=== PATIENT | female | born 1985 | race Caucasian/White ===

== ENCOUNTER 2022-02-08 13:33 | Emergency (ER) | payer BC ==
[~2022-02-08] VITALS: Ht 167.6 cm; Wt 121.6 kg
[2022-02-08 13:43] VITALS: BP_SYST 142
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
--- NOTE | 2022-02-08 18:00 | NUR ---
Dr Vaughan evaluating patient in the triage room
--- NOTE | 2022-02-08 18:10 | NUR ---
Patient to ER bed H1 to gown for evaluation. Side rails up.
[2022-02-08] MEDS ORDERED: LIDOCAINE 1% 10 MG/ML, 20 ML MDV INJ ONE (18:15)
--- NOTE | 2022-02-08 19:12 | NUR ---
Report given to ALICIA Vázquez
[2022-02-08] MEDS ORDERED: IBUP-1969 PO (19:37)
[2022-02-08] MEDS ORDERED: TRAM50TA PO (19:37)
--- NOTE | 2022-02-08 19:50 | NUR ---
dPatient given written and verbal discharge instructions and verbalizes understanding. ER MD discussed with patient the results and treatment provided. Patient in stable condition. ID arm band removed. Rx of ibuprofen, tramadol given. Patient educated on pain management and to follow up with PMD. Pain Scale 0/10. Opportunity for questions provided and answered. Medication side effect fact sheet provided.
[2022-02-08 20:25] VITALS: BP_SYST 142
== END 2022-02-08 19:50 | disposition home or self-care (01) ==
LOC: SED 13:33
DX: S61.422A Laceration with foreign body of left hand, initial encounter (principal); Z79.899 Other long term (current) drug therapy; V49.40XA Driver injured in collision with unspecified motor vehicles in traffic accident, initial encounter; Y93.89 Activity, other specified; Y92.89 Other specified places as the place of occurrence of the external cause; Y99.8 Other external cause status
CPT/HCPCS: 99284; 73130; 12001; J2001

== ENCOUNTER 2022-02-15 08:10 | Emergency (ER) | payer BC ==
[~2022-02-15] VITALS: Ht 167.6 cm; Wt 121.6 kg
[~2022-02-15 08:10] MED LIST: IBUP-1969 PO; TRAM50TA PO
[2022-02-15 08:15] VITALS: BP_SYST 145
[2022-02-15] MEDS ORDERED: BACITRACIN 1 GM OINT TP ONE (09:00)
[2022-02-15] MEDS ORDERED: CLIN-142 PO (11:32)
[2022-02-15] MEDS ORDERED: IBUP-1969 PO (11:32)
[2022-02-15 12:00] VITALS: BP_SYST 145
== END 2022-02-15 12:00 | disposition home or self-care (01) ==
LOC: SED 08:10
DX: S60.212A Contusion of left wrist, initial encounter (principal); Z48.00 Encounter for change or removal of nonsurgical wound dressing; Z79.899 Other long term (current) drug therapy; V89.2XXA Person injured in unspecified motor-vehicle accident, traffic, initial encounter; Y93.89 Activity, other specified; Y92.89 Other specified places as the place of occurrence of the external cause; Y99.8 Other external cause status
CPT/HCPCS: 87070-TC; 99284

== ENCOUNTER 2023-12-25 11:36 | Day surgery (SDC) | payer BC ==
[~2023-12-25] VITALS: Ht 167.6 cm; Wt 129.3 kg
[~2023-12-25 11:36] MED LIST changes: +CLIN-142 PO
[2023-12-25 12:18] LABS: HCG,QUAL RESULT NEGATIVE (NEGATIVE)
[2023-12-25] MEDS ORDERED: HYDROmorphone 1 MG/ML INJ. CARTRIDGE IVP PRN (13:45)
[2023-12-25] MEDS ORDERED: MEPERIDINE HCL/PF 25 MG/ML DISP.SYRIN IVP PRN (13:45)
[2023-12-25] MEDS ORDERED: METOCLOPRAMIDE HCL 10 MG/2 ML VIAL IVP PRN (13:45)
[2023-12-25] MEDS ORDERED: OXYMETAZOLINE HCL 0.05% NASAL SPRAY NS ONE (14:06)
[2023-12-25 14:20] VITALS: O2SAT 97
[2023-12-25] MEDS ORDERED: LR 1,000 ML IV SCH (15:00)
[2023-12-25] MEDS: HYDROmorphone 1 MG/ML INJ. CARTRIDGE IVP PRN (15:05)
[2023-12-25] MEDS ORDERED: HYDROmorphone 1 MG/ML INJ. CARTRIDGE ONE (15:16)
[2023-12-25 18:16] VITALS: BP_SYST 116; PULSE 67; RESP 16
== END 2023-12-25 15:58 | disposition home or self-care (01) ==
LOC: SDS 11:36 → SMU 11:38 → SDS 15:58
PROVIDERS: ATTEND Otolaryngology
DX: H69.92 Unspecified Eustachian tube disorder, left ear (principal); H68.102 Unspecified obstruction of Eustachian tube, left ear; H90.3 Sensorineural hearing loss, bilateral; E66.3 Overweight; G43.909 Migraine, unspecified, not intractable, without status migrainosus; M19.90 Unspecified osteoarthritis, unspecified site; Z68.42 Body mass index [BMI] 45.0-49.9, adult; Z91.038 Other insect allergy status; J34.2 Deviated nasal septum; Z79.899 Other long term (current) drug therapy; Z80.3 Family history of malignant neoplasm of breast; Z80.1 Family history of malignant neoplasm of trachea, bronchus and lung
CPT/HCPCS: 69436; 84703; J1100; J3465; J2405; J2704; J3010; J1170; L8699